=== PATIENT | male | born 1990 | race Caucasian/White ===

== ENCOUNTER 2016-03-05 10:28 | Emergency (ER) | payer OTHER ==
[2016-03-05] MEDS ORDERED: IBUPROFEN 400 MG TABLET PO ONE ×2 (11:00→11:05)
== END 2016-03-05 13:05 | disposition home or self-care (01) ==
DX: S50.02XA Contusion of left elbow, initial encounter (principal); V28.2XXA Unspecified motorcycle rider injured in noncollision transport accident in nontraffic accident, initial encounter
CPT/HCPCS: 73080; 99282; 99283; A9270

== ENCOUNTER 2016-07-12 20:16 | Emergency (ER) | payer OTHER ==
[2016-07-12] MEDS ORDERED: KETOROLAC 60 MG/2 ML VIAL IM STA (20:43)
[2016-07-12] MEDS ORDERED: ONDANSETRON ODT 4 MG TABLET TL STA (20:43)
[2016-07-12] MEDS ORDERED: KETOROLAC 60 MG/2 ML VIAL ONE (20:44)
[2016-07-12] MEDS ORDERED: ONDANSETRON ODT 4 MG TABLET ONE (20:44)
--- NOTE | 2016-07-12 21:23 | CT Preliminary Report ---
Exam: CT Head W/O IMPRESSION: Normal head CT. [facility] SITE ID: [id number]
--- NOTE | 2016-07-12 21:25 | CT Preliminary Report ---
Exam: CT Cervical Spine W/O IMPRESSION: Normal cervical spine CT. [facility] SITE ID: [id number]
--- NOTE | 2016-07-12 21:25 | CT Report ---
EXAM: CT HEAD EXAM DATE: 07/12/2016 09:05 PM. CLINICAL HISTORY: Head, trauma, loc, pinky numbness. COMPARISON: None. TECHNIQUE: Multiaxial CT images were obtained from the foramen magnum to the vertex. IV contrast: Non e. Reformats: Coronal. In accordance with CT protocol optimization, one or more of the following dose reduction techniques w ere utilized for this exam: automated exposure control, adjustment of mA and/or KV based on patient s ize, or use of iterative reconstructive technique. FINDINGS: Parenchyma: No intraparenchymal hemorrhage. No evidence of mass, midline shift, or CT findings of inf arction. Aldridge-white differentiation is distinct. Extraaxial Spaces: Normal for age. No subdural or epidural collections. Ventricles: Normal in size and position. Sinuses: Imaged paranasal sinuses, orbits, and mastoids show no significant abnormality. Bones: Unremarkable. Other: None. IMPRESSION: Normal head CT. [facility] Referring Provider Line: [phone] SITE ID: [id number]
--- NOTE | 2016-07-12 21:28 | CT Report ---
EXAM: CT CERVICAL SPINE WITHOUT CONTRAST DATE: 07/12/2016 09:04 PM HISTORY: Trauma, pain. COMPARISONS: None. TECHNIQUE: Thin-section axial images were acquired of the cervical spine without contrast. Post-proce ssing: Coronal and sagittal reformats. Other: None. In accordance with CT protocol optimization, one or more of the following dose reduction techniques w ere utilized for this exam: automated exposure control, adjustment of mA and/or KV based on patient s ize, or use of iterative reconstructive technique. FINDINGS: Alignment: Normal. No scoliosis or spondylolisthesis. Bones: No fracture or bone lesion. Interspace Levels/Facets: Disk space is preserved. No degenerative changes. Musculature: Grossly unremarkable. Other: The paravertebral and prevertebral soft tissues are normal. The lung apices are clear. IMPRESSION: Normal cervical spine CT. [facility] Referring Provider Line: [phone] SITE ID: [id number]
[2016-07-12] MEDS ORDERED: DEXAMETHASONE 10 MG/ML VIAL PO STA (21:38)
[2016-07-12] MEDS ORDERED: DEXAMETHASONE 10 MG/ML VIAL ONE (21:39)
[2016-07-12] MEDS ORDERED: CHERRY SYRUP 10 ML UDC PO ONE (21:39)
--- NOTE | 2016-07-12 22:31 | XRAY Preliminary Report ---
Exam: XR Lumbar Spine Complete IMPRESSION: 1. No acute bony abnormality. 2. Straightening of the spine is nonspecific and may be positional and/or related to muscle spasm. [facility] SITE ID: [id number]
--- NOTE | 2016-07-12 22:33 | XRAY Report ---
EXAM: LUMBOSACRAL SPINE RADIOGRAPHY EXAM DATE: 07/12/2016 10:07 PM. CLINICAL HISTORY: Trauma, mid lower back pain and tenderness COMPARISONS: None. TECHNIQUE: 5 views. FINDINGS: Alignment: Nonspecific loss of lumbar lordosis. No subluxation. Bones: Five [id number] lumbar vertebral bodies are present. No fractures or bone lesions. Disks: Disk space heights are well-maintained. Facets: No degenerative changes. Sacroiliac Joints: No abnormal widening. Soft Tissues: Normal. The visualized bowel gas pattern is normal. IMPRESSION: 1. No acute bony abnormality. 2. Straightening of the spine is nonspecific and may be positional and/or related to muscle spasm. [facility] Referring Provider Line: [phone] SITE ID: [id number]
--- NOTE | 2016-07-12 22:39 | ED Physician Documentation ---
PD HPI SYNCOPE - Stated complaint Stated Complaint: NECK/BACK PX - Chief complaint Chief Complaint: General - History obtained from History obtained from: Patient, Family - History of Present Illness Witnessed: Witnessed Timing - onset: Today Duration: Minutes Associated symptoms: Headache, Nausea / vomiting. No: Seizure, Incontinant of urine Contributing factors: Other (trauma) Injury occurred: Head injury Similar symptoms before: Has not had sx before Recently seen: Not recently seen - Additional information Additional information: Patient is a 25 year old male with no sigificant past medical history who is presenting to the emergency department for neck and back pain, headache and syncope after being involved in a collision during a soccer game. patient states that he was playing [place] and he went up to get a ball. Next thing he knew he woke up on the ground but he did not know what happened. Patient states that he has some left sided neck pain, back pain, and some numbness in his pinky finger on the left hand. Review of Systems Constitutional: denies: Fever, Chills Eyes: denies: Loss of vision, Photophobia Ears: denies: Ear pain, Drainage/discharge Nose: denies: Rhinorrhea / runny nose, Epistaxis Cardiac: denies: Chest pain / pressure, Palpitations Respiratory: denies: Cough, Wheezing GI: denies: Abdominal Pain, Nausea, Vomiting : denies: Hematuria Skin: denies: Rash, Abrasion (s), Laceration (s) Musculoskeletal: reports: Neck pain, Back pain, Extremity pain Neurologic: reports: Numbness, Syncope, Headache, Head injury, LOC. denies: Generalized weakness, Difficulty speaking Immunocompromised: denies: Immunocompromised PD PAST MEDICAL HISTORY - Past Medical History Past Medical History: Yes - Past Surgical History Past Surgical History: Yes - Present Medications Home Medications: Ambulatory Orders Medication Instructions Recorded Confirmed Cyclobenzaprine [Flexeril] 10 mg PO TID PRN #10 tablet 07/12/16 - Allergies Allergies/Adverse Reactions: Allergies Allergy/AdvReac Type Severity Reaction Status Date / Time No Known Drug Allergies Allergy Verified 07/12/16 20:29 - Social History Does the pt smoke?: No Smoking Status: Never smoker Does the pt drink ETOH?: Yes Does the pt have substance abuse?: No - Immunizations Immunizations are current?: Yes PD ED PE NORMAL - Vitals Vital signs reviewed: Yes - General General: Alert and oriented X 3, Well developed/nourished - HEENT HEENT: Atraumatic, PERRL, Ears normal, Moist mucous membranes, Pharynx benign, Dentition benign - Neck Neck: Supple, no meningeal sign - Cardiac Cardiac: RRR, No murmur - Respiratory Respiratory: No respiratory distress, Clear bilaterally - Abdomen Abdomen: Soft, Non tender, Non distended - Derm Derm: Normal color, Warm and dry, No rash, Other (no ecchymosis, no laceration, no abrasion) - Neuro Neuro: Alert and oriented X 3, No motor deficit, No sensory deficit, Normal speech - Psych Psych: Normal mood, Normal affect PD ED PE EXPANDED - General General: Alert, No acute distress, Well developed/nourished - Neck Neck: Soft tissue TTP (tenderness to palpation of left paraspinal muscles) - Back Back: Vertebral tenderness (tenderness to palpation of lumbar spine) - Extremities Extremities: Left knee (tenderness to palpation proximal medial knee put no gross deformity and full rom) Results - Vitals Vitals: Vital Signs - 24 hr 07/12/16 07/12/16 07/12/16 20:26 21:47 22:49 Temperature 36.6 C Heart Rate 93 69 74 Respiratory 16 18 16 Rate Blood Pressure 121/82 H 113/62 129/91 H O2 Saturation 100 100 98 Oxygen O2 Source Room air - Rads (name of study) ct head Radiology: Final report received (no acute intracranial process) ct cervical spine Radiology: Final report received (no acute fracture or dislocation) lumbar spine Radiology: Final report received (no acute fracture or dislocation) PD MEDICAL DECISION MAKING - ED course Complexity details: reviewed old records, reviewed results, re-evaluated patient , considered differential, d/w patient ED course: Patient was seen and examined at bedside. Patient was nauseated and treated with zofran and toradol before being sent for imaging. When patient returned from imaging the results were reviewed. there was no acute abnormality found. patient was given detailed discharge and return instructions for concussion. patient required no further work up and was stable for discharge with outpatient follow up. Departure - Departure Disposition: 01 Home, Self Care Clinical Impression: Concussion Condition: Good Instructions: ED Head Injury Closed Follow-Up: primary,care provider [Other] - As Needed Prescriptions: Cyclobenzaprine [Flexeril] 10 mg PO TID PRN #10 tablet PRN Reason: Spasms Comments: Your diagnostics today were within normal limits. there was no acute fracture or dislocation. You can expect to be more sore over the next 24-48 hours. You should take ibuprofen 600mg and tylenol 1gm as needed for pain. You can take the flexerill before bed for muscle spasms. If you take the flexeril you should not take any other sedatives including alcohol. You should not drive, or watch your children while taking it. you should follow up with your pmd if your symptoms persist for more than a week. You may return to the emergency department at any time for new, worsening or uncontrollable sympotms. Forms: Activity restrictions Discharge Date/Time: 07/12/16 22:50
[2016-07-12 22:50] VITALS: BP 129/91
== END 2016-07-12 22:50 | disposition home or self-care (01) ==
LOC: ED 20:16
DX: S06.0X0A Concussion without loss of consciousness, initial encounter (principal); W03.XXXA Other fall on same level due to collision with another person, initial encounter; Y93.66 Activity, soccer; Y92.322 Soccer field as the place of occurrence of the external cause
CPT/HCPCS: 70450; 72110; 72125; 96372; 99283; 99284; A9270; Q0162